=== PATIENT | male | born 1960 ===

== ENCOUNTER 2018-03-04 13:12 | Emergency (ER) | payer OTHER ==
[2018-03-04] MEDS ORDERED: Sodium Chloride 0.9% 1,000 ML IV STA ×2 (14:20→17:16)
--- NOTE | 2018-03-04 15:06 | ED PDOC ---
HPI:Nausea, Vomiting, Diarrhea Time Seen by Provider: 03/04/18 13:20 Chief Complaint (Nursing): Psychiatric Evaluation Chief Complaint (Provider): vomiting History Per: Patient, Family (niece) History/Exam Limitations: no limitations Onset/Duration Of Symptoms: Hrs (today) Associated Symptoms: Vomiting, Diarrhea Additional Complaint(s): Zachery Randall is a 57 year old male, with no known past medical history ( niece states that she thinks he has depression and dementia, but that is what she thinks, no doctor has ever diagnosed that), who was brought to the emergency department via EMS accompanied by niece for psychiatric evaluation and multiple episodes of vomiting. Per EMS, patient was found in his bed covered in feces and brown color vomit. Niece states patient also has diarrhea. Patient denies drinking alcohol or using drugs. He denies any pain at this time. Per niece, patient lives alone and shuts out family. No further medical complaints. PMD: None provided. NIHSS Stroke Scale - Date/Time Evaluation Performed Date Performed: 03/04/18 Time Performed: 13:25 When Was NIHSS Performed: Baseline - How Severe is the Stroke Level of Consciousness: 0=Alert LOC to Questions: 2=Neither correct LOC to commands: 2=Neither correct Best Gaze: 0=Normal Visual: 0=No visual loss Facial: 0=Normal Motor Arm - Left: 0=No drift Motor Arm - Right: 0=No drift Motor Leg - Left: 0=No drift Motor Leg - Right: 0=No drift Limb Ataxia: 0=Absent Sensory: 0=Normal Best Language: 1=Mild to moderate aphasia Dysarthia: 1=Mild to moderate slurring Extinction & Inattention (Neglect): 0=Normal, no object Score: 6 rTPA Inclusion/Exclusion - Refusal of Treatment Patient Refused Treatment: No - Inclusion Criteria for Altepase Patient is 18 years or Older: Yes The Clinical Diagnosis of Ischemic Stroke That is Causing a Potentially Disabling Neurological Deficit: No Time of Onset is Well Established to be Less Than 270 Minute Before Treatment Would Begin: No Risk/Benefit Discussed With Patient/Family Member Present: No - Exclusion Criteria for Altepase Uncontrolled Hypertension at Time of Treatment (Systolic BP above 185 or Diastolic BP above 110 mmHg): No Active Internal Bleeding: Yes Known Bleeding Diathesis Including but Not Limited to: Platelets Below 100,000/ mm,PTT Above 40 sec After Heparin Use, Current Use of Oral Anitcoagulant With INR Greater Than 1.7 or PT Greater Than 15 secs: No Evidence of an Intracranial Hemorrhage: No Evidence of Major Acute Infarct With Signs Greater Than 1/3 MCA Territory: No Suspicion of Subarachnoid Hemorrhage on Pretreatment Evaluation Even if CT Head Negative For Hemorrhage: No - Warning to TPA With Conditions Following Conditions Weighed Against Anticipated Benefit: No Past Medical History Reviewed: Historical Data, Nursing Documentation, Vital Signs Vital Signs: Last Vital Signs Temp 98.8 F 03/04/18 13:15 Pulse 72 03/04/18 13:15 Resp 16 03/04/18 13:15 BP 146/84 03/04/18 13:15 Pulse Ox 100 03/04/18 13:15 - Medical History PMH: No Chronic Diseases - Surgical History Surgical History: No Surg Hx - Family History Family History: States: Unknown Family Hx - Living Arrangements Living Arrangements: Alone - Social History Current smoker - smoking cessation education provided: No Alcohol: None Drugs: Denies - Allergies Allergies/Adverse Reactions: Allergies Allergy/AdvReac Type Severity Reaction Status Date / Time No Known Allergies Allergy Verified 03/04/18 13:15 Review of Systems ROS Statement: Except As Marked, All Systems Reviewed And Found Negative Gastrointestinal: Positive for: Vomiting, Diarrhea. Negative for: Abdominal Pain Physical Exam - Reviewed Nursing Documentation Reviewed: Yes Vital Signs Reviewed: Yes - Physical Exam Appears: Positive for: Non-toxic Head Exam: Positive for: ATRAUMATIC, NORMAL INSPECTION, NORMOCEPHALIC Skin: Positive for: Normal Color, Warm, Dry Eye Exam: Positive for: Normal appearance, EOMI, PERRL ENT: Positive for: Normal ENT Inspection (dark vomitus on shirt) Neck: Positive for: Painless ROM Cardiovascular/Chest: Positive for: Regular Rate, Rhythm. Negative for: Murmur Respiratory: Positive for: Normal Breath Sounds. Negative for: Respiratory Distress Gastrointestinal/Abdominal: Positive for: Normal Exam, Soft. Negative for: Tenderness Back: Positive for: Normal Inspection Extremity: Positive for: Normal ROM (upper and lower extremities), Capillary Refill (less than 2 s). Negative for: Calf Tenderness, Deformity, Swelling Neurologic/Psych: Positive for: Alert, product managent intern II-XII, Oriented (X1 name only), Gait (stable), Aphasia (pt with difficulty following commands consistently. ). Negative for: Motor/Sensory Deficits, Facial Droop - Laboratory Results Result Diagrams: 03/04/18 14:58 03/04/18 14:58 - ECG O2 Sat by Pulse Oximetry: 100 (RA) Pulse Ox Interpretation: Normal - Critical Care Total Time (In Min): 30 Medical Decision Making Medical Decision Making: Time: 13:48 Initial Impression: Vomiting Initial Plan: --CMP --Lipase --CBC w/ differential --Chest two views (PA/LAT) [RAD] --Sodium Chloride 1,000 ml IV 999 mls/hr --Urine culture --Urinalysis --Reevaluation 14:56 CXR FINDINGS: LUNGS: No active pulmonary disease. PLEURA: No significant pleural effusion identified. No pneumothorax apparent. CARDIOVASCULAR: No radiographic findings to suggest acute or significant cardiovascular disease. OSSEOUS STRUCTURES: No significant abnormalities. VISUALIZED UPPER ABDOMEN: Normal. OTHER FINDINGS: None. IMPRESSION: No active disease. pt presented with vomiting, dark material, appeared to be possible GI bleed and initiated that workup with GI. protonix, fluids, labs. however given that patient wanst following commands consistently and appeared somewhat confused, elected to do CT head. CT head was concerning for mass versus demylineating process vs stroke. 14:41 CT HEAD FINDINGS: HEMORRHAGE: No gross hyperdense intracranial hemorrhage. BRAIN: There is marked left intra cerebral deep white matter and subcortical white matter edema suggested. A 3.5 by 2.5 cm hypodensity in the left basal ganglionic region is noted with inferred surrounding edema. Central core may be minimally isodense with left breast parenchyma. The right word midline shift is estimated to be 1.3 to 1.4 cm the left frontal horn is displaced towards the right with this midline shift and there is some low-density material within the left posterior occipital bone as well. This appears less dense blood. There is artifact from motion apparently the has hiccups VENTRICLES: As detailed above. Trapped temporal horns are a consideration. CALVARIUM: Unremarkable. PARANASAL SINUSES: Unremarkable as visualized. No significant inflammatory changes. MASTOID AIR CELLS: Unremarkable as visualized. No inflammatory changes. OTHER FINDINGS: None. IMPRESSION: Extensive left intra cerebral deep white matter and subcortical white edema. 3.5 x 2.5 cm basal ganglionic region all hypodensity with surrounding edema and an associated 1.3 to 1.4 cm rightward midline shift. Compromise on the ventricles is as above. No definitive intra cranial or intra cerebral hyperdense hemorrhage seen. Prior to this dictation, the rightward midline shift and left cerebral extensive deep white matter associated edema involving nearly the entire left cerebral hemisphere was called in to the ER physician Dr. Quezada on 03/04/2018 at 4:40 p.m. 16:33 -Spoke with radiologist who stated patient has a brain mass. Will consult neurosurgery labor contract analyst. 16:50 -Spoke with Dr. Harris, neurology labor contract analyst, who advised to do an MRI of the brain. Will order chest/abd/pelvis CT as well to see if there are metastasis. 1716 --Spoke to Dr. Merida, neurosurgery labor contract analyst, stating imaging could be showing a mass vs. stroke vs. demyelinating disease. --States MRI Brain with contrast is priority. CT chest abd pelvis can be performed without contrast. --Dr. Merida asks provider not to dispo patient but to wait until MRI comes back then call him back to determine next course of action. 1850 --Dr. Lopez, GI doctor, made aware of case in the event the pt stays in [facility] . 1899 --Patient will be endorsed to Dr. Niño, pending MRI brain results and final disposition/possible transfer. ----- Scribe Attestation: Documented by Julio C Drake and Tessa Betancourt, acting as scribes for Cali Quezada MD. Provider Scribe Attestation: All medical record entries made by the Scribe were at my direction and personally dictated by me. I have reviewed the chart and agree that the record accurately reflects my personal performance of the history, physical exam, medical decision making, and the department course for this patient. I have also personally directed, reviewed, and agree with the discharge instructions and disposition. Disposition - Clinical Impression Clinical Impression: Brain mass - Patient ED Disposition Is Patient to be Admitted: Transfer of Care - Disposition Disposition: Transfer of Care Disposition Time: 19:00 Condition: SERIOUS Forms: [facility] (Greenlandic) Patient Signed Over To: Jean Niño
--- NOTE | 2018-03-04 15:10 | RAD ---
Date of service: 03/04/2018 HISTORY: Vomiting. COMPARISON: No prior. TECHNIQUE: Chest PA and lateral FINDINGS: LUNGS: No active pulmonary disease. PLEURA: No significant pleural effusion identified. No pneumothorax apparent. CARDIOVASCULAR: No radiographic findings to suggest acute or significant cardiovascular disease. OSSEOUS STRUCTURES: No significant abnormalities. VISUALIZED UPPER ABDOMEN: Normal. OTHER FINDINGS: None. IMPRESSION: No active disease.
[2018-03-04 15:11] LABS: ALB/GLOB RATIO 1.5 (1.0-2.1); ALBUMIN 4.7 g/dL (3.5-5.0); ALT/SGPT 24 U/L (21-72); AST/SGOT 25 U/L (17-59); BASO % 0.1 % (0.0-2.0); BLOOD UREA NITROGEN 14 mg/dl (9-20); CALCIUM 9.9 mg/dL (8.4-10.2); GFR AFRICAN-AMERICAN > 60; GFR NON-AFRICAN AMERICAN > 60; HEMOGLOBIN 16.4 g/dL (12.0-18.0); LIPASE 90 U/L (23-300); LYMPH # 0.3 K/uL (1.0-4.3); MEAN CORPUSCULAR HEMOGLOBIN 29.9 pg (27.0-31.0); MEAN CORPUSCULAR HGB CONC 33.2 g/dL (33.0-37.0); MEAN PLATELET VOLUME 7.1 fl (7.2-11.7); MONO # 0.2 K/uL (0.0-0.8); MONO % 2.5 % (0.0-10.0); NEUT # 8.6 K/uL (1.8-7.0); NEUT % 94.4 % (50.0-75.0); PLATELET COUNT 316 K/uL (130-400); RBC 5.47 Mil/uL (4.40-5.90); RED CELL DISTRIBUTION WIDTH 13.8 % (11.5-14.5); WHITE BLOOD COUNT 9.1 K/uL (4.8-10.8)
[2018-03-04 16:02] LABS: BANDS 1 % (0-2); HYPOCHROMIC SLIGHT; LYMPHOCYTE 7 % (20-50); MONOCYTE 3 % (0-10); NEUTROPHIL 89 % (42-75); PLATELET ESTIMATE NORMAL (NORMAL); TOTAL CELLS COUNTED 100
--- NOTE | 2018-03-04 16:43 | CT ---
Date of service: 03/04/2018 PROCEDURE: CT HEAD WITHOUT CONTRAST. HISTORY: altered mental status COMPARISON: None available. TECHNIQUE: Axial computed tomography images were obtained through the head/brain without intravenous contrast. Radiation dose: Total exam DLP = 1255 mGy-cm. This CT exam was performed using one or more of the following dose reduction techniques: Automated exposure control, adjustment of the mA and/or kV according to patient size, and/or use of iterative reconstruction technique. FINDINGS: HEMORRHAGE: No gross hyperdense intracranial hemorrhage. BRAIN: There is marked left intra cerebral deep white matter and subcortical white matter edema suggested. A 3.5 by 2.5 cm hypodensity in the left basal ganglionic region is noted with inferred surrounding edema. Central core may be minimally isodense with left breast parenchyma. The right word midline shift is estimated to be 1.3 to 1.4 cm the left frontal horn is displaced towards the right with this midline shift and there is some low-density material within the left posterior occipital bone as well. This appears less dense blood. There is artifact from motion apparently the has hiccups VENTRICLES: As detailed above. Trapped temporal horns are a consideration. CALVARIUM: Unremarkable. PARANASAL SINUSES: Unremarkable as visualized. No significant inflammatory changes. MASTOID AIR CELLS: Unremarkable as visualized. No inflammatory changes. OTHER FINDINGS: None. IMPRESSION: Extensive left intra cerebral deep white matter and subcortical white edema. 3.5 x 2.5 cm basal ganglionic region all hypodensity with surrounding edema and an associated 1.3 to 1.4 cm rightward midline shift. Compromise on the ventricles is as above. No definitive intra cranial or intra cerebral hyperdense hemorrhage seen. Prior to this dictation, the rightward midline shift and left cerebral extensive deep white matter associated edema involving nearly the entire left cerebral hemisphere was called in to the ER physician Dr. Quezada on 03/04/2018 at 4:40 p.m.
[2018-03-04 18:02] LABS: BARBITURATES, UR NEGATIVE (NEGATIVE); BENZODIAZEPINES, UR NEGATIVE (NEGATIVE); OPIATES, UR NEGATIVE (NEGATIVE); PHENCYCLIDINE, UR NEGATIVE (NEGATIVE)
[2018-03-04] MEDS ORDERED: Gadodiamide 287 MG/ML VIAL (15ML) IV ONE (18:03)
[2018-03-04 18:15] LABS: URINE AMORPHOUS SEDIMENT RARE /ul (<OCC); URINE BACTERIA RARE (<OCC); URINE BILIRUBIN NEGATIVE (NEGATIVE); URINE BLOOD MODERATE (NEGATIVE); URINE CLARITY SLIGHTY-CLOUDY (Clear); URINE COLOR YELLOW (YELLOW); URINE GLUCOSE (UA) 50 mg/dL (Normal); URINE LEUKOCYTE ESTERASE NEG Leu/uL (Negative); URINE PROTEIN NEGATIVE (NEGATIVE)
--- NOTE | 2018-03-04 19:31 | ED PDOC ---
- Laboratory Results Result Diagrams: 03/04/18 14:58 03/04/18 14:58 - ECG O2 Sat by Pulse Oximetry: 100 (RA) Medical Decision Making Medical Decision Making: Time: 1899 --Patient is endorsed to provider from Dr. Quezada, pending MRI brain results. Time: 2051 --MRI brain FINDINGS: BRAIN: The corpus callosum is diffusely thickened, with a large mass centered in the body of the corpus callosum extending predominantly into the left lateral ventricle, filling the ventricle with a heterogeneously enhancing mass. The central portion of the mass is hypointense especially in the region of the atrium and occipital horn of left lateral ventricle. The mass also extends into or contiguous with the medial right parasagittal frontal lobe cortex and more significantly into the left centrum semiovale white matter. 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 Primary LIQUID WASTE TREATMENT PLANT OPERATOR lymphoma could account for this as well. Largest dimensions of the mass are 4.2 cm cephalocaudal in the left atrium, 4.8 cm transversely, and 6.9 cm in anteroposterior dimension. There are multiple markedly hypointense foci within the intraventricular mass predominantly in the left lateral ventricle consistent with old microhemorrhages. There are additional approximately 1 cm and smaller rim enhancing lesions in and adjacent to the tumor in the splenium of the corpus callosum which is markedly thickened and lobulated. The hypodensity in the subcortical and deep white matter throughout the left cerebral hemisphere noted on the CT is present, probably representing a combination of edema and possibly nonenhancing tumor. This is manifested as T2 and FLAIR hyperintensity but is less apparent by MRI and is less than expected to account for the degree of midline shift to the right. There is restricted diffusion within the mass in the atrium of left lateral ventricle and in the body of the corpus callosum, most likely related to the tumor rather than acute ischemic infarction although infarction within the mass could be present as well. The brain stem, seventh and eighth cranial nerve complexes and cerebellopontine angle structures are normal. MIDLINE SHIFT: There is 10 mm midline shift to the right, unchanged compared to the prior CT. VENTRICLES: Tumor distends the left lateral ventricle.There is mild dilatation of the temporal horns secondary to the tumor. BONES/JOINTS: Unremarkable. SINUSES: The sinuses are clear. MASTOID AIR CELLS: The mastoid air cells are clear. ORBITS: The intraorbital contents appear normal. SELLA: No obvious pituitary mass or sellar region abnormality is seen. INTERNAL CAROTID ARTERIES: Normal flow void is seen within the imaged internal carotid and vertebrobasilar arteries and cantwell of Bernal structures. OTHER FINDINGS: IMPRESSION: Diffusely thickened corpus callosum with a large lobulated heterogeneously enhancing mass centered in the body of the corpus callosum extending across the midline predominantly into the left lateral ventricle as discussed above. Differential diagnosis includes a glioblastoma multiform as well as primary LIQUID WASTE TREATMENT PLANT OPERATOR lymphoma. The splenium of the corpus callosum is also very thickened and lobulated consistent with neoplasm contains with multiple rim-enhancing foci. Additional small satellite enhancing lesions are noted as discussed above. 10 mm midline shift to the right, unchanged compared to the earlier CT. See discussion above. Time: 2027 --Discussed case with Dr. Merida, neurosurgery. Recommends transfer as he cannot perform a biopsy at this facility. Time: 2109 --Spoke to neurosurgery resident, Dr. Mary Redman, at [facility] whom accepts patient for transfer under [facility] attending physician, Dr. Matute. --Arrangement made for transfer to emergency department of [facility]. Scribe Attestation: Documented by Tessa Betancourt, acting as a scribe for Jean Niño MD. Provider Scribe Attestation: All medical record entries made by the Scribe were at my direction and personally dictated by me. I have reviewed the chart and agree that the record accurately reflects my personal performance of the history, physical exam, medical decision making, and the department course for this patient. I have also personally directed, reviewed, and agree with the discharge instructions and disposition. Disposition Discussed With Dr.: Dalton Merida (Dr Harris) Counseled Patient/Family Regarding: Studies Performed, Diagnosis - Clinical Impression Clinical Impression: Brain mass - POA Present On Arrival: None - Disposition Disposition: Transfer of Care Disposition Time: 22:00 Condition: CRITICAL Forms: [facility] (Mauritian) Critical Care Time - Critical Care Note Total Time (in mins): 60 Documented critical care: time excludes all time spent performing seperately billable procedures.
[2018-03-04 20:12] VITALS: RESP 20
[2018-03-04] MEDS ORDERED: Dexamethasone 10 MG in Sodium Chloride 0.9% 50 ML IV STA (21:06)
[2018-03-04] MEDS ORDERED: levETIRAcetam 500 MG in Sodium Chloride 0.9% 100 ML IVPB ONE (21:30)
[2018-03-04 22:55] VITALS: BP 138/86; PULSE 63; TEMP 98.4
[2018-03-05 03:36] VITALS: O2SAT 100
--- NOTE | 2018-03-05 08:24 | CT ---
Date of service: 03/04/2018 PROCEDURE: CT Chest, Abdomen and Pelvis without intravenous contrast HISTORY: possible brain mass COMPARISON: None. TECHNIQUE: Radiation dose: Total exam DLP = 679.52 mGy-cm. This CT exam was performed using one or more of the following dose reduction techniques: Automated exposure control, adjustment of the mA and/or kV according to patient size, and/or use of iterative reconstruction technique. FINDINGS: CT CHEST WITHOUT CONTRAST: LUNGS: Clear. No nodule, mass or consolidation. MEDIASTINUM: Unremarkable. Normal caliber aorta and pulmonary arterial trunk. Normal size heart. LYMPH NODES: Unremarkable. PLEURA: Unremarkable. No pneumothorax. No pleural fluid. BONES: Unremarkable. OTHER FINDINGS: None. CT ABDOMEN AND PELVIS: LIVER: Unremarkable. No gross lesion or ductal dilatation. GALLBLADDER AND BILE DUCTS: Unremarkable. PANCREAS: Unremarkable. No gross lesion or ductal dilatation. SPLEEN: Unremarkable. ADRENALS: Unremarkable. No mass. KIDNEYS AND URETERS: Unremarkable. No hydronephrosis. No solid mass. VASCULATURE: Unremarkable. No aortic aneurysm. BOWEL: Unremarkable. No obstruction. No gross mural thickening. APPENDIX: Normal appendix. PERITONEUM: Unremarkable. No free fluid. No free air. LYMPH NODES: Unremarkable. No enlarged lymph nodes. BLADDER: Decompressed around Aguilar catheter balloon. REPRODUCTIVE: Normal prostate BONES: No acute fracture. OTHER FINDINGS: None. IMPRESSION: Unremarkable CT examination of the chest, abdomen and pelvis. No evidence of primary neoplasm. The preliminary findings for this examination were reported by [facility] at 9:01 p.m. on 03/04/2018. There is concurrence of this report with the preliminary findings.
--- NOTE | 2018-03-05 15:40 | MRI ---
Date of service: 03/04/2018 PROCEDURE: MRI BRAIN WITH AND WITHOUT CONTRAST HISTORY: abnormal brain mass COMPARISON: None. TECHNIQUE: Multiplanar, multisequence MR images of the brain were obtained with and without intravenous contrast enhancement. FINDINGS: HEMORRHAGE: None DWI: No evidence of an acute or early subacute infarction. BRAIN PARENCHYMA: There is a large mass identified primarily within the low left cerebral hemisphere but also affecting not only the body of the corpus callosum but also the splenium. The majority of the lesion is within the left parietal and temporal lobes with limited extension into the posterior left frontal white matter and upper left basal ganglia. It is difficult to measure due to its multi directional growth pattern but appears to measure at least 7.5 x 4.7 x 4.9 cm (transverse by anteroposterior by superoinferior dimensions). This is a significant under measurement. It extends through the splenium of the corpus callosum and into the right occipital lobe. There are infrequent small cystic component suggestive of focal necrosis and trace hemosiderin is scattered throughout the long axis of the lesion in the left parietal lobe superiorly. There are small areas of restricted diffusion associated as well. Moderate heterogeneous enhancement is associated with significant portions of the lesion. Moderate edema is associated with the lesion, particularly at the left temporal and parietal lobes with a limited rightward midline shift reiterated 1.5 cm. Mass-effect is also seen effacing the left lateral ventricle via body completely as well as the vast majority of left cerebral sulci. The basilar cisterns appear adequately patent. Given the overall appearance enhancement pattern, this is felt to represent a high-grade primary brain tumor, specifically a glioblastoma multiforme gave written necrosis, hemorrhage and corpus callosum involvement. Lymphoma is not favored due to limitations on the enhancement pattern though this is not completely excluded either. Metastasis is unlikely. Posterior fossa contents appear unremarkable. Edema in the left cerebral peduncle suggest tumor extension here. No hydrocephalus although left lateral ventricle is largely effaced by mass effect. VENTRICLES: See brain parenchyma discussion above. CRANIUM: Unremarkable. ORBITS: Grossly unremarkable. PARANASAL SINUSES/MASTOIDS: Clear VASCULAR SYSTEM: Skull base flow voids intact. OTHER FINDINGS: None . IMPRESSION: 1. A large partially enhancing mass is reiterated but better defined affecting the left parietal and temporal lobes primarily but also the corpus callosum and upper left basal ganglia as well as right occipital lobe likely representing a glioblastoma multiforme though lymphoma is not completely excluded. Metastatic disease not felt to be likely. Generalized mass effect is seen affecting left cerebral hemisphere Velma effacement of the majority of the left lateral ventricle. No hydrocephalus. 1.5 cm rightward midline shift. Patent, stable basilar cisterns. 2. Posterior fossa contents unremarkable. Concordant preliminary report from [facility], 03/04/2018.
== END 2018-03-04 23:10 | disposition short-term general hospital (02) ==
LOC: H.ER 13:12
DX: D49.6 Neoplasm of unspecified behavior of brain (principal)
CPT/HCPCS: 70450; 70553; 71046; 71250; 74176; 80053; 80320; 80324; 80345; 80346; 80349; 80353; 80358; 80361; 81003; 82948; 83690; 83992; 85025; 87086; 87390; 96374; 96375; 96376; 99285; A9579; C9113; G0328; J1100; J1953; J2405; J7030